=== PATIENT | male | born 1955 | race Caucasian/White ===

== ENCOUNTER → 2016-11-29 | Day surgery (SDC) | payer OTHER ==
[~2016-11-29] VITALS: Ht 172.7 cm; Wt 77.1 kg
[~2016-11-29] MED LIST: ASPIRIN EC81 M1 PO; SIMVASTATIN20 M2 PO
--- NOTE | 2016-11-29 11:34 | Operative Report ---
Operative/Inv Procedure Report Surgery Date: 11/29/16 Name of Procedure: Cystoscopy and transurethral resection of bladder tumor Pre-Operative Diagnosis: Bladder tumor Post-Operative Diagnosis: Same Estimated Blood Loss: scant Surgeon/Cycle Manager: Mckay MALONE, Geno STROGN MD,GENO Katz Anesthesia: laryngeal mask airway Drains: 20 [place]ian Renteria Specimens: Bladder tumor chips Complications: None Condition: Stable Operative Indication: Bladder tumor Operative/Procedure Note Note: The patient was taken to the cystoscopy room and identified. He was placed in supine position on the cystoscopy table. Timeout was executed appropriately with the patient awake. Gen. anesthesia was induced via LMA. He was then placed in dorsal lithotomy position. Bimanual rectal exam revealed a mildly enlarged, nonnodular prostate with no other pelvic masses. He was prepped and draped in usual fashion for cystoscopy. Surgical pause was executed appropriately. A 22 Tunisian cystoscope sheath was placed into the bladder under direct vision using the 30 lens. Anterior urethra was normal. The prostatic urethra showed trilobar hypertrophy with partial bladder outlet obstruction. Cystoscopy was performed. The right and left ureteral orifices were normal in appearance and location. The bladder was mildly to moderately trabeculated. Just lateral to the left ureteral orifice was a bladder tumor which was 2-3 cm in size. The remainder the bladder mucosa appeared normal. The bladder was left full. The urethral meatus was dilated with [facility] sounds to 30 Tunisian. The 26 Tunisian resectoscope sheath was then placed into the bladder using the obturator. The working element was inserted. The bladder tumor was resected completely. At the depth of the resection appeared to include muscle in the specimen. The Jenna evacuator was used to remove all bladder tumor chips in the bladder. The base of the bladder tumor was then cauterized. No significant bleeding was noted from the site of the bladder tumor. There was some mild oozing from the prostatic urethra. The ureteral orifices were preserved. The bladder was left full and the resectoscope removed. A 20 Tunisian two-way Renteria catheter was inserted and attached to a leg bag. The patient tolerated the procedure well and was transferred to the recovery room at its completion in stable condition. Findings: 2-3 cm bladder tumor just lateral to the left ureteral orifice Discharge Disposition: PACU
== END ==
LOC: STS 03:14
DX: C67.9 Malignant neoplasm of bladder, unspecified (principal); N32.89 Other specified disorders of bladder; N40.1 Benign prostatic hyperplasia with lower urinary tract symptoms; E78.5 Hyperlipidemia, unspecified
CPT/HCPCS: 88307; J0690; J2250

== ENCOUNTER → 2017-11-07 | Day surgery (SDC) | payer OTHER ==
[~2017-11-07] VITALS: Ht 172.7 cm; Wt 79.4 kg
--- NOTE | 2017-11-07 12:26 | Operative Report ---
Operative/Inv Procedure Report Surgery Date: 11/07/17 Name of Procedure: Cystoscopy and bladder biopsy Pre-Operative Diagnosis: Small recurrent bladder tumor Post-Operative Diagnosis: Same Estimated Blood Loss: scant Surgeon/Candy Counter Clerk: Mckay MALONE,Felipe Katz Anesthesia: laryngeal mask airway Drains: None Specimens: Bladder biopsy Complications: None Condition: Stable Operative Indication: This patient previously has had transurethral resection of bladder tumor. On routine follow-up office cystoscopy he was found to have a small recurrence on the dome of the bladder. Now scheduled for removal of a small recurrent bladder tumor Operative/Procedure Note Note: The patient was taken to the cystoscopy room and identified. As placed in supine position on the cystoscopy table. A timeout was executed appropriately with the patient awake. Gen. anesthesia was induced via LMA. He was then placed in dorsolithotomy position and prepped and draped in usual fashion for cystoscopy. A surgical pause was executed appropriately. The 22 Mongolian cystoscope sheath was placed into the bladder under direct vision using the 30 lens. Anterior urethra was normal. Prostatic urethra showed mild hypertrophy with partial bladder outlet obstruction. Upon entering the bladder cystoscopy was performed. The right and left ureteral orifices were normal in location and appearance. There was no evidence of bladder calculus. The bladder was mildly trabeculated. There was a 5 mm papillary bladder tumor on the dome of the bladder. There were no other tumors seen. Using the flexible biopsy forceps the small bladder tumor was removed in its entirety. The Bugbee electrode was then used to fulgurate the base of the bladder tumor. No significant bleeding was noted at this time. The bladder was emptied and the cystoscope removed. Patient tolerated the procedure well and as completion was taken recovery room in stable condition. Findings: Small papillary recurrent bladder tumor at the bladder dome Discharge Disposition: PACU
== END ==
LOC: STS 00:50
DX: D30.3 Benign neoplasm of bladder (principal); Z85.51 Personal history of malignant neoplasm of bladder; N32.89 Other specified disorders of bladder; Z87.891 Personal history of nicotine dependence; I45.2 Bifascicular block; R80.9 Proteinuria, unspecified; I10 Essential (primary) hypertension
CPT/HCPCS: J0690; J2250